=== PATIENT | female | born 1985 | race Caucasian/White ===

== ENCOUNTER 2017-04-12 00:14 | Inpatient (IN) | payer OTHER ==
[~2017-04-12] VITALS: Ht 170.2 cm; Wt 96.0 kg
[~2017-04-12 00:14] MED LIST: AZITHROMYCIN250 MG PO; CLINDAMYCIN HC300 MG PO; IBUPROFEN600 MG PO; IBUPROFEN800 MG PO; NORCO 5-325 TA1 EACH PO; PROMETHAZINE HC25 M1 PO; TYLENOL EXTRA500 MG PO
[2017-04-12] MEDS ORDERED: PRENATAL GUMMI1 EACH PO (01:25)
--- NOTE | 2017-04-13 10:41 | PR ---
[facility] [address] [facility] [place], [place] [address] Signed PP Progress Notes Datetime Report Generated by SHAUN: 04/13/2017 10:41 SUBJECTIVE: [id number] Pain: Within normal limits Vital Signs: [id number] Vital Signs: Reviewed; Within Normal Limits EXAM: [id number] Cardiovascular: Not Done Respiratory: Not Done Abdomen/Uterus: Abnormal Lochia: Normal Vulva/Perineum: Not Done Breasts: Not Done CVA Tenderness: Not Done Extremities: Abnormal Incision: Not Applicable Progress: Not Applicable Exam Comments: Fundus firm, NT @ U-1 2+ edema H/H 10.1/29.9, WBC 14.4, plat 252k IMPRESSION/PLAN/PROCEDURES: [id number] Impression: Normal progression Plan: Continue present management Progress Notes: Doing well. Signing Physician: Tiffany Soriano MD CC: *Electronically Signed* 04/13/17 1041 TIFFANY SORIANO MD PATIENT NAME: SUJATHA KELLER PROGRESS NOTE DATE OF : 89 PHYSICIAN: TIFFANY SORIANO MD RPT #: [id number] REPORT IS CONFIDENTIAL AND NOT TO BE RELEASED WITHOUT AUTHORIZATION
== END 2017-04-14 17:40 | disposition home or self-care (01) | DRG 775 ==
LOC: FBC 00:14
PROVIDERS: ADMIT Obstetrics & Gynecology
PROC: 10E0XZZ Delivery of Products of Conception, External Approach (ICD-10-PCS; principal; 2017-04-12)
PROC: 10907ZC Drainage of Amniotic Fluid, Therapeutic from Products of Conception, Via Natural or Artificial Opening (ICD-10-PCS; 2017-04-12)
PROC: 3E0P7GC Introduction of Other Therapeutic Substance into Female Reproductive, Via Natural or Artificial Opening (ICD-10-PCS; 2017-04-12)
PROC: 00HU33Z Insertion of Infusion Device into Spinal Canal, Percutaneous Approach (ICD-10-PCS; 2017-04-12)
PROC: 3E0R3CZ (ICD-10-PCS; 2017-04-12)
DX: O13.4 Gestational [pregnancy-induced] hypertension without significant proteinuria, complicating childbirth (principal); O99.824 Streptococcus B carrier state complicating childbirth; O69.2XX0 Labor and delivery complicated by other cord entanglement, with compression, not applicable or unspecified; O75.89 Other specified complications of labor and delivery; Z87.891 Personal history of nicotine dependence; Z88.1 Allergy status to other antibiotic agents; Z88.0 Allergy status to penicillin; Z3A.39 39 weeks gestation of pregnancy; Z37.0 Single live birth
CPT/HCPCS: 01960; 36415; 82803; 85027; J1200; J2590; J3010; J3370; J7120

== ENCOUNTER 2018-01-31 08:32 | Inpatient (IN) | payer OTHER ==
[~2018-01-31] VITALS: Ht 170.2 cm; Wt 85.3 kg
--- NOTE | ~2018-01-31 | OR ---
[facility] [address] [place], [place] [address] Draft DATE OF OPERATION: 03/01/2018 SURGEON: Tiffany Soriano MD SURGEON: Tiffany Soriano MD CUSTOMER SUPPORT REPRESENTATIVE: Hoang Ybarra MD PREOPERATIVE DIAGNOSIS: Uterovaginal prolapse, stress incontinence. POSTOPERATIVE DIAGNOSIS: Uterovaginal prolapse, stress incontinence. PROCEDURES: Total vaginal hysterectomy, left salpingectomy, obturator sling, cystoscopy, and rectocele repair with dermis. ANESTHESIA: Spinal with IV sedation. ESTIMATED BLOOD LOSS: 250 mL. DRAINS: Gillette catheter. PACKS: Vaginal. INDICATIONS AND FINDINGS: The patient is a 32-year-old female, 4, para 4, who has been having increasing issues with her uterovaginal prolapse and stress incontinence. Kegel exercises have not been helpful. She is also needing to splint to have bowel movements. She was extensively counseled and the decision was made to proceed with TVH with A and P repair with sling. At the time of surgery, she had grade 2 uterine prolapse. The uterus, left tube, and ovary appeared normal. The right tube and ovary were not seen. She had a grade 2 cystocele initially, which resolved after hysterectomy. She had a grade 2 PATIENT NAME: SUJATHA KELLER OPERATIVE REPORT DATE OF : [birth year] REPORT #: [id number] PHYSICIAN: TIFFANY SORIANO MD PCP: TIFFANY SORIANO MD REPORT IS CONFIDENTIAL AND NOT TO BE RELEASED WITHOUT AUTHORIZATION [facility] [address] [place], [place] [address] Draft rectocele. DESCRIPTION OF PROCEDURE: The patient was prepped and draped in the dorsal lithotomy position. A weighted speculum was placed in the posterior cul-de-sac. The anterior and posterior lips of the cervix were grasped with single-tooth tenaculum. The cervix was injected with 1% lidocaine with 1:200,000 epi to a volume of 10 mL. The posterior cul-de-sac was then entered sharply and the uterosacral ligaments grasped on each side with a curved Z clamps, divided with Rincon scissors, and suture ligated with 0-Vicryl. The [place] speculum was then replaced in the posterior cul-de-sac. The vaginal mucosa was then circumscribed with a knife and sharp dissection was used to push the vaginal mucosa up off the cervix. Another bite was taken on each side incorporating the cardinal ligament areas, dividing with the Rincon scissors, and suture ligated with 0-Vicryl. Further attention was directed anteriorly and the anterior cul-de-sac was entered sharply. Serial bites were taken in the cardinal ligament areas and the uterine vessel areas taking care to incorporate both the anterior and posterior leaves of the perineum. These, each were divided and suture ligated with 0-Vicryl. Following this, remaining broad ligament pedicles were identified and the uterus delivered posteriorly and the pedicles were clamped across with the curved Z-clamps and divided. This was followed by free ties of 0-Vicryl, followed by suture ligatures of 0-Vicryl. The patient's left tube was then identified and grasped with a [place] clamp and clamped with a curved Z-clamp and excised. A free tie of 0-Vicryl was placed. Following this, the cuff was thoroughly evaluated and there was evidence of bleeding around the uterine vessel areas on each side as well as the posterior cul-de-sac and these were controlled with multiple rcqkwc-bw-[id number] sutures of 0-Vicryl. The peritoneum was tacked to the vaginal mucosa anteriorly as well. At this point, it was felt that the cuff was hemostatic. Angle sutures were then placed incorporating the vaginal mucosa exteriorizing the broad ligament pedicles coming across the peritoneum and exiting via the uterosacral ligaments inferiorly. These were placed bilaterally and tied laterally. The peritoneum was open, as it was a very small area. The cuff itself was closed with a running locking stitch of 0-Vicryl. Following this, the sling was placed. There was no evidence of cystocele at this point. The vaginal mucosa was incised along the mid urethral area. This was from the underlying tissue with a combination of blunt and sharp dissection. This was carried out laterally to behind the pubic rami. Following this, an incision was made over the obturator notches bilaterally. The trocars with the sling were then placed at the lowest most medial portion of the obturator notch and brought immediately behind the pubic rami and brought into the apex of the vaginal incision. These were placed bilaterally. Following this, the cystoscopy was begun. The patient had received IV fluorescein. The Gillette catheter was removed and the cystoscope placed. The 70-degree scope was used. There was no evidence of any incursion of the trocars into the bladder or any evidence of bladder injury. There was no fluorescein seen. Both ureteral orifices were evaluated and clear urine was seen to freely egress from both of PATIENT NAME: SUJATHA KELLER OPERATIVE REPORT DATE OF : [birth year] REPORT #: [id number] PHYSICIAN: TIFFANY SORIANO MD PCP: TIFFANY SORIANO MD REPORT IS CONFIDENTIAL AND NOT TO BE RELEASED WITHOUT AUTHORIZATION [facility] [address] [place], [place] [address] Draft the orifices. Following this, cystoscopy was complete, the bladder drained, and the Gillette catheter replaced. The sling was then attached to the trocars and brought through the skin incisions bilaterally. Care was taken to keep the sling in the mid urethral area and relatively loose. The covering was removed and the excess trimmed at the skin incisions. Following this, the vaginal mucosa was closed with a running suture of 2-0 Vicryl. The skin incisions at the sling exits were closed with interrupted sutures of 3-0 Vicryl Rapide. At this point, the rectocele repair was begun. A triangle of tissue was removed from the perineal body. The vaginal mucosa was undermined, incised in the midline to the apex of the vagina. The vaginal mucosa was from the underlying tissue with a combination of blunt and sharp dissection. This was carried out to the ischial spines bilaterally. The Capio device was used to deploy a 0-Vicryl suture into the mid point of the sacrospinous ligament for use later. A site specific repair was done plicating the remaining perirectal fascial type tissue with interrupted sutures of 0-Vicryl. Following this, a rectal examination was done, which showed good reduction of the defect and no sutures compromising the rectal lumen. Following this dermis, which had been prepared according to the package directions and trimmed into a [id number]-wguga-jggk shape, was sutured at the arms to the sutures at the sacrospinous ligaments. These were tied down with appropriate tension. The graft itself was tacked into place with interrupted sutures of 2-0 Vicryl. This was placed across the top of the graft, at the arm holes, and down the sides. Following this, another rectal examination was done, which confirmed good reduction of the defect, and no sutures compromised on the rectal lumen. FloSeal was then injected around the sacrospinous ligaments on each side to aid in hemostasis. The vaginal mucosa was then trimmed quite a bit because of the redundancy and the vaginal mucosa closed with running suture of 2-0 Vicryl from the apex of the vagina to the hymenal ring. Several additional iqbprl-fd-mvquh sutures were required near the apex of the vagina for control of bleeding. The midportion of the cuff also appeared to be somewhat wet and another todoqy-xz-weppw was placed in this area as well. The perineal body was recreated with interrupted sutures of 2-0 Vicryl. The posterior fourchette was recreated with a running suture of 2-0 Vicryl. The skin and the perineum were closed with interrupted sutures of 2-0 Vicryl placed in the subcu location. Inspection of the vault showed good length and caliber. Good hemostasis was noted. All sponge and needle counts were correct, and the patient was taken to the recovery room in good condition. MD BALA NuñezW/MODL /[id number] PATIENT NAME: SUJATHA KELLER OPERATIVE REPORT DATE OF : [birth year] REPORT #: [id number] PHYSICIAN: TIFFANY SORIANO MD PCP: TIFFANY SORIANO MD REPORT IS CONFIDENTIAL AND NOT TO BE RELEASED WITHOUT AUTHORIZATION [address] [address] Draft cc: Dr. Jordan Ybarra MD Copies: HOANG YBARRA MD ~ PATIENT NAME: SUJATHA KELLER OPERATIVE REPORT DATE OF : 89 REPORT #: [id number] PHYSICIAN: TIFFANY SORIANO MD PCP: TIFFANY SORIANO MD REPORT IS CONFIDENTIAL AND NOT TO BE RELEASED WITHOUT AUTHORIZATION
[~2018-01-31 08:32] MED LIST changes: +PRENATAL GUMMI1 EACH PO
--- NOTE | 2018-03-01 10:55 | NUR ---
03/01/18 1055 Amanda Noel 1028 PT ARRIVED IN PACU WIDE. NO C/O'S. MOVING BILAT LEGS. 1035 C/O ABD CRAMPING. FENTANYL 25MCG GIVEN IVP. 1041 C/O NAUSEA. PHENERGAN 12.5MG GIVEN SLOW IVP. 1046 C/O INCREASED ABD CRAMPING. FENTANYL 25MCG GIVEN IVP FOR 8/10 PAIN. PT STATES "MY NAUSEA IS BETTER, CAN I HAVE A DRINK OF WATER." SIPS OF WATER TAKEN. 1050 OXYGEN SATS DECRESED TO 88% ON RA. O2 AT 2L VIA NC PLACED WITH SATS 100%. PARRISH CATH DRAINING NEON YELLOW URINE. C/O ITCHY NOSE.
--- NOTE | 2018-03-01 11:50 | NUR ---
PT ARRIVED TO FLOOR VIA STRETCHER, TRANSFERRED TO HOSPITAL BED INDEPENDENTLY. PT DROWSY BUT ORIENTED. REPORTS PAIN IN VAGINA AND LOWER BACK 8/10 WHILE AWAKE BUT FALLS ASLEEP EASILY, RESP 10-12 WHILE ASLEEP. PT SATTING 96% ON RA. SHELL PAD IN PLACE, SCANT AMOUNT OF RED DRAINAGE. VAG PACKING IN PLACE AND VISIBLE. PARRISH PATENT PUTTING OUT NEON YELLOW URINE. PT HAS ICE PACKS TO LOWER ABD AND LOWER BACK. IV INFUSING IN LEFT AC, FLUSHES WELL. PT TAKING SIPS OF WATER WHILE AWAKE, VJ WELL. DENIES NAUSEA AT THIS TIME. SCD'S ON, CALL LIGHT WITHIN REACH.
--- NOTE | 2018-03-01 12:46 | NUR ---
PT RESTING IN BED, EYES CLOSED, RESP 12, EVEN AND UNLABORED, SATTING 96% ON RA.
--- NOTE | 2018-03-01 13:37 | NUR ---
PATIENT C/O ITCHING DURING VITALS, PATIENT GIVEN 25 MG OF BENADRYL IV AT THIS TIME. PATIENT PAIN IN HER ABDOMEN IS UP TO A 8/10, PATIENT REQUESTING PAIN MEDICATION NOW, PATIENT GIVEN 4MG OF MORPINE IV
--- NOTE | 2018-03-01 14:51 | NUR ---
PT REPORTS CATHETER BURNING AND A STRONG URGE TO VOID. PT REQUESTED TO STAND FOR A BREIF TIME HOPING TO HELP DRAIN CATHETER. PT STOOD WELL AT BEDSIDE WITH MINIMAL ASSIST, DENIED DIZZINESS OR OTHER CONCERNS. THIS RN ATTEMPED REPOSITIOING PARRISH TUBING, ASSESSED FOR VAPOR LOCK, GOOD URINE OUTPUT NOTED. NO SIGNIFICANT DRAINAGE NOTED UPON PT STANDING. BLADDER SCAN COMPLETED, OML RECORDED. PT EDUCATED ON PARRISH PLACEMENT AND CYSTOSCOPY PROCEDURE. ICE PACK REFRESHED. PT GIVEN CHICKEN BROTH PER REQUEST. PT LYING BACK IN BED, VERY SMALL AMOUNT OF BRIGHT RED BLOODI ON SHELL PAD. CALL LIGHT WITHIN REACH.
--- NOTE | 2018-03-01 16:28 | NUR ---
PT C/O NAUSEA, MEDICATED WITH IV REGLAN. PT DENIES PAIN OR OTHER CONCERNS AT THIS TIME. PARRISH PATENT, NO CHANGES WITH VAGINAL BLEEDING. CONT TO FALL ASLEEP EASILY DURING CONVERSATION. CALL LIGHT WITHIN REACH.
--- NOTE | 2018-03-01 17:44 | NUR ---
PATIENT SITTING UP IN BED EATING DINNER WITH HER FATHER BY HER SIDE. NO OTHER NEEDS AT THIS TIME. CALL BUTTON IN REACH.
--- NOTE | 2018-03-01 18:04 | NUR ---
PT HAD EMESIS OF APPROX 200ML, MEDICATED WITH 12.5MG OF IV PHENERGAN. PT STATES SHE WOULD LIKE TO SLEEP FOR A WHILE. DENIES PAIN, NO NEW BLEEDING. LIGHTS OFF, FRESH WATER, CALL LIGHT WITHIN REACH. PARRISH AND IV PATENT.
--- NOTE | 2018-03-01 18:44 | NUR ---
PT SLEEPING SOUNDLY, RESP 10, EVEN AND UNLABORED. SATTING 98% ON RA.
--- NOTE | 2018-03-01 19:20 | NUR ---
BEDSIDE REPORT RECEIVED FROM MONTSERRAT DOMÍNGUEZ. PT SLEEPING, AWAKENS TO VOICE WITH REPORT. SPO2 97% ON ROOM AIR, HR 67. IVF INFUSING WNL. PARRISH DRAINING. PT REQUESTING TO REST, NO REQUESTS AT THIS TIME.
--- NOTE | 2018-03-01 21:00 | NUR ---
CALL LIGHT ANSWERED. NEW IVF BAG INFUSING AT THIS TIME, PT DROWSY, BACK TO SLEEP AT THIS TIME, SATURATIONS WNL ON CONT. PULSE OX. LIGHTS OFF IN ROOM.
--- NOTE | 2018-03-01 21:55 | NUR ---
VITALS AND I&OS DONE AND CHARTED. FRESH ICE WATER AND JELLO GIVEN. BEDSIDE TABLE AND CALL LIGHT WITHIN REACH.
--- NOTE | 2018-03-01 22:10 | NUR ---
PT ASSESSMENT, VITALS COMPLETE. PT AWAKE, ALERT, RATES PAIN 0/10 AT THIS TIME. ABLE TO DANGLE AT BEDSIDE, STAND, AND WALK A FEW STEPS AROUND ROOM. SOME C/O "CRAMPING" NO PAIN WITH MOVEMENT. BACK IN BED, HOB ELEVATED EATING JELLO, DENIES NAUSEA AT THIS TIME, BOWEL TONES HYPOACTIVE X 4, ABD SOFT, TENDER IN LUQ, LLQ W PALPATION. SHELL PAD CHANGED SMALL AMOUNT SANGUINOUS DRAINAGE IN MIDDLE STRIP OF SHELL PAD NOTED. PARRISH DRAINING. PRN BENADRYL ADMINISTERED FOR ITCHING. CALL LIGHT AND PERSONAL SUPPLIES IN REACH, SCDS ON.
--- NOTE | 2018-03-01 23:56 | NUR ---
CHECKED ON PT, APPEARS TO BE SLEEPING, EYES CLOSED, BREATHING NON-LABORED, SPO2 98% ON ROOM AIR, HR 67 ON CONTINUOUS PULSE OXIMETER. SCDS ON. IVF INFUSING.
--- NOTE | 2018-03-02 01:19 | NUR ---
CALL LIGHT ANSWERED, PT GIVEN ICE WATER REQUESTED. PT DENIES PAIN AT THIS TIME, DENIES NAUSEA. SCDS ADJUSTED FOR COMFORT. NO ADDL REQUESTS AT THIS TIME, CALL LIGHT IN REACH, IVF INFUSING WNL.
--- NOTE | 2018-03-02 01:31 | NUR ---
VITALS AND I&OS DONE AND CHARTED. BEDSIDE TABLE AND CALL LIGHT WITHIN REACH.
--- NOTE | 2018-03-02 01:47 | NUR ---
medicated with Zofran 4mg oer c/o dry heaving and nausea
--- NOTE | 2018-03-02 02:17 | NUR ---
SBA TO RESTROOM FOR ORAL CARE, GAIT STEADY. PT C/O 03/28 "CRAMPING" IN ABDOMEN. BP REASSESSED SITTING 107/61 (71), PRN NORCO ADMINISTERED FOR PAIN. SMALL AMT SEROSANGUINOUS DRAINAGE NOTED ON SHELL PAD. BOWEL TONES ACTIVE X 4, ABDOMEN SOFT. PT STATES SHE IS PASSING FLATUS. PT GIVEN CRACKERS AT THIS TIME, ICE WATER, TOLERATING WELL. NO EMESIS. SPO2 98% ON RA, HR 67 CONT. PULSE OX ON. SCDS ON, PARRISH CATHETER DRAINING. CALL LIGHT IN REACH. PT HAS NO ADDL REQUESTS AT THIS TIME.
--- NOTE | 2018-03-02 03:23 | NUR ---
CONT PULSE OX ALARMING FOR LOW BATTERY, PT AWAKENS, THEN BACK TO SLEEP, BREATHING NON-LABORED. SCDS ON. IVF INFUSING. LIGHTS OFF IN ROOM.
--- NOTE | 2018-03-02 04:57 | NUR ---
PT APPEARS TO BE SLEEPING, EYES CLOSED, BREATHING NON-LABORED, EQUAL CHEST RISE BILATERALLY. SATURATIONS WNL CONT. PULSE OXIMETER. LIGHTS OFF IN ROOM.
--- NOTE | 2018-03-02 05:08 | NUR ---
PAIN WELL CONTROLLED WITH SCHEDULED PAIN MEDICATIONS, PRN NORCO X 1. NO EMESIS THIS SHIFT, PRN NAUSEA MEDICATIONS ADMINISTERED X 1. SMALL AMOUNT OF SEROSANGUINOUS DRAINAGE TO SHELL PAD THIS SHIFT. PARRISH CATHETER DRAINING QUANITY SUFFICIENT OUTPUT, VITALS STABLE. SATURATIONS WNL ON RA. PT ABLE TO AMBULATE TO RESTROOM AND BACK THIS SHIFT FOR ORAL CARE, TOLERATED WELL, SBA. PT PASSING FLATUS, ACTIVE BOWEL TONES. PRN BENADRYL X 1 FOR ITCHING.
--- NOTE | 2018-03-02 06:36 | NUR ---
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 PARRISH D/C'D WNL, PT VJ WELL. VAGINAL PACKING IN PLACE. SMALL AMT SEROSANGUINOUS DRAINAGE ON SHELL PAD, REPLACED. SBA TO RESTROOM PT FEELS URGE TO VOID, EDUCATION PROVIDED. SBA BACK TO BED, SCDS ON. IVF INFUSING WNL. PT HAS MENU TO ORDER BREAKFAST. NO REQUESTS AT THIS TIME, CALL LIGHT IN REACH.
--- NOTE | 2018-03-02 08:00 | NUR ---
RECEIVED REPORT AT 0700, FOUND PT IN BED READY TO USE THE BATHROOM. BLADDER SCAN HAD POST VOID RESIDUAL OF 40ML. MD CIFUENTES IS AWARE. NAUSEA IS STILL PRESENT. PRN ZOFRAN 4MG IV GIVEN. PT NOW IS SL. PO INTAKE ENCOURAGED. NO OTHER CONCERNS AT THIS TIME.
[2018-03-02] MEDS ORDERED: CHILDREN'S MU200 MCG PO (09:25)
--- NOTE | 2018-03-02 10:00 | NUR ---
ALL LOBES ARE CLEAR. PT IS DOING VOIDING TRIAL AT THIS TIME. PT HAS BEEN SLEEPING SOME. PO INTAKE NEEDS TO BE INCREASED. ABD SOUNDS ARE PRESENT. PT IS PASSING GAS. SMALL AMOUNT OF VAG BLEEDING PRESENT. NO NEW CONCERNS FOR THIS PT AT THIS TIME.
--- NOTE | 2018-03-02 12:00 | NUR ---
PT DENIES PAIN AT THIS TIME. PT HAD 700ML OUT AND 170ML PVR. PT IS AMBULATING WELL. NO N/V AT THIS TIME. NO NEW CONCERNS AT THIS TIME. CONTINUE TO MONITOR I&O.
--- NOTE | 2018-03-02 12:07 | NUR ---
PT ALERT, ORIENTED. SHE WAS RESTING IN BED, TRYING TO TALK HERSELF INTO EATING SOMETHING. SHE HAS BEEN DEALING WITH SOME NAUSEA, AND NEEDS TO BE ABLE TO HOLD FOOD DOWN FOR DC TODAY. PLEASANT VISIT, SHE THANKED ME FOR STOPPING BY. I EX- TENDED A BLESSING, WILL FOLLOW NEEDED
--- NOTE | 2018-03-02 12:55 | NUR ---
PT WALKED TO LONG LAPS IN THE MS HALLWAY. PT DENEIES NAUSEA AT THIS TIME.
--- NOTE | 2018-03-02 14:00 | NUR ---
PT JUST SHOWERED. PT HAS NO NEEDS AT THIS TIME.
--- NOTE | 2018-03-02 16:05 | NUR ---
PT AT THIS TIME IS SLEEPING.
--- NOTE | 2018-03-02 16:36 | NUR ---
POST VOID RESIDUAL TRIAL COMPLETED PER MD CIFUENTES.
--- NOTE | 2018-03-02 17:53 | NUR ---
V/S ARE WDL. VOIDING TRIAL STARTED AT 0700 AND ENDED AT 1630 PER MD CIFUENTES. VAG PACKING WAS REMOVED BY MD CIFUENTES. BLEEDING HAS REMAINED SCAN THIS SHIFT. ABD SOUNDS ARE PRESENT AND PT IS PASSING GAS AND SHE ALSO HAD A BM X1. PO INTAKE AND OUTPUT ARE ADEQUATE, PAIN IS OVERALL WELL CONTROLLED. PT WILL STAY ANOTHER NIGHT. ALL LOBES ARE CLEAR. PT AMBULATED IN HALLWAY. NO NEW CONERNS AT THIS TIME.
--- NOTE | 2018-03-02 18:31 | NUR ---
SET PATIENT UP FOR SHOWER THIS MORNING. THAN SHE TOOK HER SHOWER THIS AFTERNOON AND WASHED HER HAIR. NOW SHE IS SLEEPING.
--- NOTE | 2018-03-02 20:32 | NUR ---
VITALS AND I&OS DONE AND CHARTED. FRESH ICE WATER GIVEN. BEDSIDE TABLE AND CALL LIGHT WITHIN REACH.
--- NOTE | 2018-03-02 21:05 | NUR ---
AMBULATED HALLWAYS SEVERAL TIMES, TOLERATED WELL, COOPERKELVIN NORTH ASSESSMENT, NO C/O PAIN, MINIMUM SCABT AMOUNT OF VAGINAL DISCHARGE PRESENT. DECLINE NEED FOR REGLAN, DENIES FEELING N/V OR DRY HEAVING. DECLINES MINERAL OIL AND AND SENOKOT, DUE TO HAVING HAD SEVERAL LOOSE STOOLS TODAY. UP IN CHAIR WATCHING TV
--- NOTE | 2018-03-02 21:11 | NUR ---
DID 4 LAPS WALKING WITH PT AROUND MED SURG FLOOR.
--- NOTE | 2018-03-02 23:17 | NUR ---
No further c/o pain. eyes closed, opens easily, turns self in bed, no c/o pain at this time. continues to need post void bladder scanning, scant sanguineous vaginal drainage noted in pad
--- NOTE | 2018-03-03 01:29 | NUR ---
Resting, no c/o pair, n/v or sob. Declines 1999 and 199 reglan
--- NOTE | 2018-03-03 02:32 | NUR ---
UP TO BRP, VOIDED, DARK YELLOW COLORED URINE. SCAND REDDISH COLORED VAGINAL DRAINAGE STATED. WALKING IN ROOM W.O PROBLEMS. C/O ABD CRAPING, MEDICATED WITH ONE NORCO, BACK TO BED, NO OTHER REQUESTS
--- NOTE | 2018-03-03 05:18 | NUR ---
CURRENTLY RESTING, EYES CLOSED. WAS MEDICATED 1X WITH NORCO PER C/O ABD CRAMPING,W ITH GOOD PAIN RELIEF, STATED SCANT AMOUNT OF LIGHT RED VAGINA DISCHARGE. NO C/O N/V OR DRY HEAVING. DELINED SCHEDULED REGLAN. RECEIVED MOTRIN ATC, WITH GOOD PAIN RELIEF. SL INTACT. PT HAS AMBULATED HALLWAYS SEVERAL TIMES, WITH GOOD PAIN RELIEF. PT TOLERATING DIET W/O PROBLEMS, TO BE DC HOME TODAY.
--- NOTE | 2018-03-03 06:11 | NUR ---
VITALS AND I&OS DONE AND CHARTED. FRESH ICE WATER GIVEN. BEDSIDE TABLE AND CALL LIGHT WITHIN REACH. PT NEEDS NOTHING ELSE AT THIS TIME.
--- NOTE | 2018-03-03 06:12 | NUR ---
TWO WARM BLANKETS GIVEN PER PT REQUEST
--- NOTE | 2018-03-03 07:05 | NUR ---
PT SLEEPING, BEDSIDE REPORT FROM MONTSERRAT WU. PT HAD A GOOD NIGHT, NO NAUSEA, NO PAIN. SLEEPING WELL. ANTICPIATE DISCHARGE EARLY.
[2018-03-03] MEDS ORDERED: IBUPROFEN800 MG PO (08:50)
[2018-03-03] MEDS ORDERED: NORCO 5-325 TA1 EACH PO (08:51)
[2018-03-03] MEDS ORDERED: SENOKOT-S TABL1 EACH PO (08:51)
--- NOTE | 2018-03-03 11:13 | NUR ---
PT DRESSED, SITTING UP IN BED WAITING FOR HER RIDE. SHE EXPECTS THEM TO ARRIVE IN ABOUT 45 MIN. I SUSPECT SHE WILL HAVE DIFFICULTY LETTING HER BODY CATCH UP TO HER DESIRE TO GO. REMINDED HER TO FOLLOW THE DRS' ORDERS-SHE ACKNOWLEDGED. PT REQUESTED PRAYER, WILL FOLLOW NEEDED
--- NOTE | 2018-03-03 11:40 | NUR ---
PT DISCHARGE TEACHING COMPLETE, DISCUSSED EXPECTED PAIN, WHEN TO CALL THE DR, ACTIVITY LEVELS, AND MEDICATION. 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 RX GIVEN. PRN PAIN MEDS GIVEN PRIOR TO DISCHARGE FOR RIDE TO [employer]. PT REQUESTED TO WALK OUT SITTING IS VERY PAINFUL. RN ESCORTED PT AND FAMILY TO WAITING VEHICLE. PT SETTLED IN PASSENGER SEAT.
== END 2018-03-03 11:30 | disposition home or self-care (01) | DRG 743 ==
LOC: DSVR 03-01 05:45 → MS 03-01 06:45
PROVIDERS: ADMIT Obstetrics & Gynecology
PROC: 0UT97ZZ Resection of Uterus, Via Natural or Artificial Opening (ICD-10-PCS; principal; 2018-03-01 06:45)
PROC: 0UT67ZZ Resection of Left Fallopian Tube, Via Natural or Artificial Opening (ICD-10-PCS; 2018-03-01 06:45)
PROC: 0TSD0ZZ Reposition Urethra, Open Approach (ICD-10-PCS; 2018-03-01 06:45)
PROC: 0JUC0KZ Supplement of Pelvic Region Subcutaneous Tissue and Fascia with Nonautologous Tissue Substitute, Open Approach (ICD-10-PCS; 2018-03-01 06:45)
DX: N81.2 Incomplete uterovaginal prolapse (principal); N39.3 Stress incontinence (female) (male); R11.2 Nausea with vomiting, unspecified; Z97.5 Presence of (intrauterine) contraceptive device; Z87.891 Personal history of nicotine dependence; Z88.1 Allergy status to other antibiotic agents; Z88.0 Allergy status to penicillin
CPT/HCPCS: 00944; 36415; 51798; 85027; 88307; C1762; C1771; C2631; J1170; J1200; J1644; J1956; J2250; J2270; J2274; J2300; J2405; J2550; J2704; J2765; J3010; J7120